=== PATIENT | female | born 1970 | race Caucasian/White ===

== ENCOUNTER 2018-06-08 09:23 | Emergency (ER) | payer SELFPAY ==
[~2018-06-08] VITALS: Ht 170.2 cm; Wt 63.0 kg
[2018-06-08 09:25] VITALS: BP 143/118
== END 2018-06-08 10:40 | disposition left against medical advice (07) ==
LOC: ER 09:33
DX: Z00.8 Encounter for other general examination (principal); F91.9 Conduct disorder, unspecified
CPT/HCPCS: 99283